=== PATIENT | male | born 2000 | race Caucasian/White ===

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

== ENCOUNTER 2021-07-02 22:26 | Emergency (ER) | payer BC, OTHER | END 2021-07-02 23:41 | disposition home or self-care (01) | LOC: MW.ED 22:26 | DX: S93.401A Sprain of unspecified ligament of right ankle, initial encounter (principal); X50.1XXA Overexertion from prolonged static or awkward postures, initial encounter | CPT/HCPCS: 73610-26-RT; 73610-RT; 99283 ==